=== PATIENT | male | born 1965 | race Caucasian/White ===

== ENCOUNTER 2016-10-02 15:27 | Emergency (ER) | payer SELFPAY ==
[~2016-10-02] VITALS: Ht 175.3 cm; Wt 74.6 kg
[2016-10-02 16:00] VITALS: BP 116/80
[2016-10-02] MEDS ORDERED: ALBUTEROL SULFATE 2.5 MG/3 ML NPPB ONE (16:30)
[2016-10-02] MEDS ORDERED: ALBUTEROL SULFATE 2.5 MG/3 ML ONE (16:37)
== END 2016-10-02 17:48 | disposition home or self-care (01) ==
LOC: ED 17:00
DX: J18.9 Pneumonia, unspecified organism (principal); J00 Acute nasopharyngitis [common cold]; I10 Essential (primary) hypertension
CPT/HCPCS: 71020; 94640; 99284; J7613